=== PATIENT | female | born 1975 | race Caucasian/White ===

== ENCOUNTER 2020-12-13 20:18 | Emergency (ER) | payer OTHER, SELFPAY ==
[2020-12-13 20:20] VITALS: BP 149/85; PULSE 80; RESP 18; TEMP 36.9; O2SAT 97; BMI 53.1
[2020-12-13] MEDS: FAMOTIDINE 20 MG TABLET PO (20:24)
[2020-12-13] MEDS: predniSONE 20 MG TABLET 60 MG PO (20:24)
--- NOTE | 2020-12-13 20:35 | PC.NURSE ---
Patient got the [employer] Covid Vaccine 12/06/20 into her left deltoid. States there was a very large bump there that she has been massaging and thinks it maybe caused this. Currently i can still feel a hard lump in that area that she says has gone down in size.
--- NOTE | 2020-12-13 21:34 | ED_ITS ---
HPI - Allergic Reaction General Chief complaint: Allergic Reaction Stated complaint: Allergic Reaction Time Seen by Provider: 12/13/20 20:20 Source: patient and EMS Mode of arrival: EMS Limitations: no limitations History of Present Illness HPI narrative: 45-year-old female nonsmoker with history of allergic reactions and bronchospasm presents by EMS for evaluation of the development of a fine pruritic rash that developed on her arms, chest and back this afternoon. She denies any trouble breathing or swallowing. She denies any swelling of tongue, lip, throat or face. She denies dizziness, weakness, lightheadedness or GI complaints such as abdominal pain or diarrhea. She denies any exposure to new foods, lotions, pets but does state that she had a vaccination a few days ago and has had similar reactions in the past after flu shot. Patient took 75 mg of Benadryl at home by mouth MD complaint: allergic reaction Onset (ago): hour(s) Exposure: unknown Symptoms: rash Severity: mild Treatment prior to arrival: benadryl Previous Allergic Reaction History: other Related Data Previous Rx's Medication Instructions Recorded epinephrine [EpiPen 2-Devin] 0.3 mg IM Q5-15M PRN #2 each 12/13/20 prednisone See Rx Instructions .ROUTE 12/13/20 .COMPLEX #30 tab Allergies Allergy/AdvReac Type Severity Reaction Status Date / Time acetaminophen [From Tylenol] Allergy Severe Seizure Verified 12/13/20 20:35 influenza virus vaccine qs Allergy Intermediate Hives Verified 12/13/20 20:35 [id number] (36 mos, up) [From Fluarix Quad] Penicillins Allergy Intermediate Hives Verified 12/13/20 20:35 Review of Systems Constitutional Constitutional: Denies chills, Denies fatigue, Denies fever(s), Denies frequent falls, Denies lethargy and Denies weakness Eyes Eyes: Denies change in vision, Denies eye discharge, Denies irritation and Denies loss of vision ENT Ears, Nose, Mouth, and Throat: Denies change in voice, Denies dizziness, Denies neck pain, Denies sore throat and Denies throat swelling Cardiovascular Cardiovascular: Denies chest pain, Denies irregular heart rhythm, Denies lightheadedness, Denies palpitations, Denies dyspnea, Denies dyspnea on exertion and Denies orthopnea Respiratory Respiratory: Denies cough, Denies dyspnea, Denies dyspnea on exertion and Denies wheezing Gastrointestinal Gastrointestinal: Denies abdominal pain, Denies change in bowel habits, Denies diarrhea, Denies nausea and Denies vomiting Musculoskeletal Musculoskeletal: Denies neck pain and Denies numbness Integumentary/Breasts Skin/Breast: Reports pruritus, Denies erythema, Reports rash and Denies wounds Neurologic Neurologic: Denies behavioral changes, Denies confusion, Denies dizziness, D enies frequent falls, Denies loss of vision, Denies numbness and Denies weakness Psychiatric Psychiatric: Denies anxiety, Denies behavioral changes, Denies confusion, Denies depression, Denies homicidal ideation and Denies suicidal ideation Endocrine Endocrine: Denies fatigue, Denies flushing and Denies palpitations Hematologic/Lymphatic Hematologic/Lymphatic: Denies easy bruising Allergic/Immunologic Allergic/Immunologic: Denies urticaria, Denies throat swelling and Denies wheezing Patient History Smoking Status: Never smoker alcohol intake frequency: 0-2 drinks per day Substance Use Type: does not use Exam Narrative Exam Narrative: GENERAL: [45] year old patient appears stated age. Well- nourished, well-developed patient, in mild distress. HEAD: Atraumatic. Normocephalic. EYES: Pupils equal round and reactive. Extraocular motions intact. No scleral icterus. No injection or drainage. ENT: No swelling of face, lips, tongue or throat Nose without bleeding, purulent drainage. Throat without erythema, tonsillar hypertrophy or exudate. Airway patent. NECK: Trachea midline. Non tender CARDIOVASCULAR: Regular rate and rhythm without murmurs, gallops, or rubs. RESPIRATORY: Clear to auscultation. Breath sounds equal bilaterally. No wheezes, rales, or rhonchi. GASTROINTESTINAL: Abdomen soft, non-tender, nondistended. EXTREMITIES: No edema or joint tenderness. BACK: Nontender without deformity or crepitance. No flank tenderness. NEURO: AOx3. SKIN: Fine erythematous rash without obvious hives on arms, chest and back. Initial Vital Signs Initial Vital Signs: Vital Signs Temperature 98.5 F 12/13/20 20:20 Pulse Rate 80 12/13/20 20:20 Respiratory Rate 18 12/13/20 20:20 Blood Pressure 149/85 H 12/13/20 20:20 Pulse Oximetry 97 12/13/20 20:20 Course Course Course Narrative: Patient feeling better after above-stated therapies. Vitals stable, no airway involvement, no signs of anaphylaxis. Patient given return precautions and questions answered to her apparent satisfaction Orders Ordered: Discontinued Medications Famotidine (Famotidine 20 Mg Tablet) 20 mg PO NOW ONE Stop: 12/13/20 20:21 Last Admin: 12/13/20 20:24 Dose: 20 mg Documented by: CECIL Prednisone (Prednisone 20 Mg Tablet) 60 mg PO NOW ONE Stop: 12/13/20 20:20 Last Admin: 12/13/20 20:24 Dose: 60 mg Documented by: CECIL Vital Signs Vital signs: Vital Signs - 8 hr 12/13/20 20:20 12/13/20 21:46 Temperature 98.5 F Pulse Rate 80 74 Respiratory Rate 18 18 Blood Pressure 149/85 H 136/65 Pulse Oximetry 97 96 Discharge Plan Departure Patient Disposition: Home Clinical Impression: Allergic reaction Qualifiers: Encounter type: initial encounter Qualified Code(s): T78.40XA - Allergy, unspecified, initial encounter Instructions: DI for General Allergic Reactions Activity Restrictions/Additional Instructions: *You have been diagnosed with [allergic reaction, unknown trigger.] *What to do: *Take medications as directed: Please consider the routine use of [id number] antihistamines such as Benadryl and Pepcid. Additionally prescriptions have been sent to [facility] in [place] *Follow up with your primary care provider in 2-3 days, call for an appointment. Let them know you were seen in the Emergency Department and that we ask that you be seen in follow up *Return to ER if you should have any new, worsening or concerning symptoms, such as [trouble swallowing, breathing, swelling of tongue, lip or face or other bothersome symptoms] Prescriptions: New prednisone 10 mg tablet See Rx Instructions .ROUTE .COMPLEX Qty: 30 RF: 0 epinephrine [EpiPen 2-Devin] 0.3 mg/0.3 mL auto-injector 0.3 mg IM Q5-15M PRN (Reason: anaphylaxis) Qty: 2 RF: 0 Referrals: Nayeli Lopez DO [Primary Care Provider] -
[2020-12-13 21:46] VITALS: BP 136/65; PULSE 74; RESP 18; O2SAT 96
== END 2020-12-13 21:48 | disposition home or self-care (01) ==
PROVIDERS: Emergency Provider Emergency Medicine; PCP Family Medicine
DX: T78.40XA Allergy, unspecified, initial encounter (principal)
CPT/HCPCS: 99283; A9270

== ENCOUNTER → 2021-05-03 18:01 | Outpatient (CLI) | payer OTHER, SELFPAY ==
--- NOTE | 2021-05-03 18:04 | DI.RAD.S_ITS ---
PROCEDURE: XR CHEST 2V INDICATIONS: cough x3 weeks, not improving, asthma exacerbation, r/o PNA TECHNIQUE: 2 views of the chest were acquired. COMPARISON: [facility], , CHEST 2 VIEW, 02/27/2013, 18:05. FINDINGS: Surgical changes and devices: None. Lungs and pleura: Lungs are clear. No pleural effusions or pneumothorax. Mediastinum: Mediastinal contours are normal. Heart size is normal. Bones and chest wall: No suspicious bony abnormalities. Soft tissues appear unremarkable. IMPRESSION: Unremarkable chest x-ray Approved by: Adams Watson M.D. on 05/03/2021 at 17:22
== END ==
PROVIDERS: PCP Internal Medicine; Referring Provider Physician Assistant; Visit Provider Physician Assistant
DX: R05 Cough (principal); J45.901 Unspecified asthma with (acute) exacerbation; Z20.822 Contact with and (suspected) exposure to COVID-19
CPT/HCPCS: 71046; 87635

== ENCOUNTER 2021-11-18 08:53 | Emergency (ER) | payer OTHER, SELFPAY ==
--- NOTE | 2021-11-18 09:07 | DI.CT.S_ITS ---
PROCEDURE: CT STROKE INDICATIONS: right arm numbness HTN TECHNIQUE: Noncontrast 4.5 mm thick angled axial sections acquired from the foramen magnum to the vertex, with coronal reformats. For radiation dose reduction, the following was used: automated exposure control, adjustment of mA and/or kV according to patient size. COMPARISON: None. FINDINGS: Image quality: Excellent. CSF spaces: Basal cisterns are patent. No extra-axial fluid collections. Ventricles are normal in size and shape. Brain: No midline shift. No intracranial masses or hemorrhage. Gant-white matter interface is normal. Skull and face: Calvarium and visualized facial bones are intact, without suspicious lesions. Sinuses: Visualized sinuses and mastoids are clear. IMPRESSION: No acute intracranial abnormality. Findings were discussed with Dr. Corrigan 9:32 AM on 11/18/2021. This study fulfills neurological imaging criteria for inclusion or exclusion of acute stroke therapies based on available published neurological imaging guidelines. Dictated by: Rigo Ramirez M.D. on 11/18/2021 at 9:35 Approved by: Rigo Ramirez M.D. on 11/18/2021 at 9:36
--- NOTE | 2021-11-18 09:08 | DI.CT.S_ITS ---
PROCEDURE: CT ANGIO HEAD AND NECK INDICATIONS: right arm numbness TECHNIQUE: After the administration of intravenous contrast, 1 mm thick sections acquired from the aortic arch through the [place]. Post-contrast 4.5 mm thick sections then re-acquired from the foramen magnum to the vertex. 3-dimensional qqylvud-lopkhzvmh-omcmjnmamw (MIP) and/or volume rendering reformats were acquired of the central intracranial vasculature and neck separately. COMPARISON: None. FINDINGS: Image quality: Excellent. BRAIN: CSF spaces: Ventricles are normal in size and shape. Basal cisterns are patent. No extra-axial fluid collections. Brain: No midline shift. No intracranial bleeds or masses. Gant-white matter interface appears intact. Skull and face: Calvarium and facial bones appear intact, without suspicious lesions. Orbits appear normal. Sinuses: Sinuses and mastoids are clear. HEAD CT ANGIOGRAPHY: Anterior circulation: Intracranial internal carotid arteries are normal in size and flow. The flow within the paired anterior cerebral arteries is normal and symmetric. The flow within the middle cerebral arteries is normal and symmetric. The anterior communicating artery is seen. No aneurysms are seen. Posterior circulation: Visualized portions of the vertebral arteries demonstrate normal caliber, and join to form a normal appearing basilar artery. Flow within the posterior cerebral arteries is normal and symmetric. No aneurysms are seen. NECK CT ANGIOGRAPHY: Carotid system: The great vessels demonstrate a conventional anatomy as they arise from the aortic arch. The origins of the common carotid arteries appear patent. The common carotid arteries demonstrate normal caliber and courses. The bifurcation regions are both widely patent. The internal carotid arteries demonstrate normal calibers and courses. Posterior circulation: The origins of the vertebral arteries both appear widely patent. The more superior extracranial portions of both vertebral arteries also demonstrate normal courses and calibers. They join to form a normal appearing basilar artery. Soft tissues: Visualized neck soft tissues demonstrate no suspicious abnormalities. Bones: No suspicious bony lesions. Visualized cervical spine appears normally aligned. IMPRESSION: No hemodynamically significant stenosis or occlusion of the major intracranial or extracranial arterial circulation. Findings were discussed with Dr. Corrigan at 043 on 11/18/2021. Any quantitative measurements of stenosis were performed using NASCET criteria. Dictated by: Rigo Ramirez M.D. on 11/18/2021 at 9:42 Approved by: Rigo Ramirez M.D. on 11/18/2021 at 9:44
--- NOTE | 2021-11-18 09:15 | ED_ITS ---
HPI - Neuro Symptoms/Deficit General Chief Complaint: Neuro Symptoms/Deficit Stated Complaint: Frontal Migraine and Rt. arm pain Time Seen by Provider: 11/18/21 09:03 History of Present Illness HPI Narrative: Patient is a 46-year-old female with history of hypertension and migraines pres enting today with migraine-like headache. She actually said 2 days ago she had the worst migraine headache she has ever had. She said she took Advil and Flexeril went to sleep woke up and it was gone. Yesterday she had a normal day. Today she woke up at 6:15 a.m. with headache and severe right arm pain. She feels like it is numb and tingling. It does hurt to move she is actually needing something to help prop it up. But she is able to hold it. She has a headache behind her head starting in her neck and going to the front. It certainly is not as bad as it was 2 days ago. However today she checked her blood pressure is quite elevated. She does take losartan for blood pressure. She denies any visual changes nausea or vomiting. She has no chest pain Related Data Previous Rx's Medication Instructions Recorded epinephrine 0.3 mg/0.3 mL 0.3 mg (0.3 mL) IM Q5-15M PRN #2 12/13/20 injection, auto-injector (EpiPen each 2-Devin) prednisone 10 mg tablet See Rx Instructions .ROUTE 12/13/20 .COMPLEX #30 tab benzonatate 100 mg capsule 100 mg PO BID-TID PRN #20 cap 05/03/21 Allergies Allergy/AdvReac Type Severity Reaction Status Date / Time acetaminophen [From Tylenol] Allergy Severe Seizure Verified 11/18/21 09:19 influenza virus vaccine qs Allergy Intermediate Hives Verified 11/18/21 09:19 [id number] (36 mos, up) [From Fluarix Quad] Penicillins Allergy Intermediate Hives Verified 11/18/21 09:19 Review of Systems Review of Systems Narrative: GENERAL: Denies chills, fatigue, malaise, fever, sweats, travel HEENT: Denies sinus pain, ear pain, sore throat, difficulty swallowing, neck pain RESPIRATORY: Denies dyspnea, cough, wheezing, hemoptysis, sputum. CARDIOVASCULAR: Denies chest pain, palpitations, orthopnea, edema GASTROINTESTINAL: Denies nausea, vomiting, abdominal pain, diarrhea, constipation, melena. : Denies dysuria, frequency, incontinence, hematuria, urinary retention, flank pain. MUSCULOSKELETAL: Denies weakness, joint pain, or bony pain SKIN: No rash, no erythema, no pruritus NEUROLOGIC: See HPI PSYCHIATRIC: No concerning psychosocial issues. 12 point review of systems is negative except for those stated above and HPI Patient History Medical History Hypertension Migraine Social History Smoking Status: Never smoker Smoking Status: Never smoker alcohol intake frequency: 0-2 drinks per day Substance Use Type: does not use Exam Initial Vital Signs Initial Vital Signs: Vital Signs Temperature 98.4 F 11/18/21 09:19 Pulse Rate 84 11/18/21 09:19 Respiratory Rate 20 11/18/21 09:19 Blood Pressure 189/80 H 11/18/21 09:19 Pulse Oximetry 98 11/18/21 09:19 GENERAL: Alert well-appearing 36-year-old female BMI 57 in no acute distress. HEENT: Head atraumatic,EOMI, pupils reactive, face symmetric, moist mucous membranes CARDIOVASCULAR: Regular rate and rhythm without murmurs, rubs or gallops. RESPIRATORY: Breath sounds equal bilaterally, no wheezes rales or rhonchi. ABDOMEN: Soft, nontender. Normoactive bowel sounds all 4 quadrants. No guarding or rebound. EXTREMITIES: Normal range of motion, no clubbing or edema. Neurovascularly intact NEUROLOGICAL: Alert and oriented x4.Normal gait and speech. Cranial nerves II through XII grossly intact. Good mtjsyx-pp-woos, good cjmd-ih-wxcu, strength equal bilaterally, no dysarthria or aphasia, sensation in tact to soft touch bilaterally, no visual changes, no facial droop SKIN: Warm, dry, no laceration, no petechiae, no rashes or lesions. Scores NIH Stroke Scale Level of Conciousness: Alert, keenly responsive Ask month/age: Answers both questions correctly. Open/close eyes, close hand: Performs both tasks correctly Best gaze horizontal: Normal Visual nguyen: No visual loss Facial palsy: Normal symetrical movement Left arm drift: No drift for full 10 sec Right arm drift: No drift for full 10 sec Left leg drift: No drift for full 5 sec Right leg drift: No drift for full 5 sec Limb ataxia: Absent Sensory on face/arms/legs: Mild to moderate sensory loss, can tell touch (right arm) Best language: No aphasia, normal Dysarthria: Normal Extinction or inattention: No abnormality Total NIH Stroke scale score: 1 Course Orders Ordered: ED Orders 11/18/21 10:47 Urinalysis and Microscopic Stat Discontinued Medications Sodium Chloride (Normal Saline 0.9%) 1,000 mls @ 150 mls/hr IV CONT TIERRA Last Admin: 11/18/21 10:00 Dose: 150 mls/hr Documented by: PORFIRIO Vital Signs Vital signs: Vital Signs - 8 hr 11/18/21 11:00 11/18/21 11:30 11/18/21 11:35 Pulse Rate 81 79 81 Respiratory Rate 37 H 14 16 Blood Pressure 199/89 H 158/67 H Pulse Oximetry 98 11/18/21 11:45 Pulse Rate 81 Respiratory Rate 18 Blood Pressure 158/67 H Pulse Oximetry 99 MDM - Neuro Symptoms/Deficit Lab Data Result diagrams: 11/18/21 09:55 11/18/21 09:55 Labs: Lab Results 11/18/21 11/18/21 11/18/21 Range/Units 09:45 09:55 09:55 WBC 9.0 (4.5-11.0) X10^3/uL RBC 4.53 (4.0-5.2) X10^6/uL Hgb 12.8 (12.0-16.0) g/dL Hct 38.0 (36-46) % MCV 83.9 (80-100) fL MCH 28.2 (26-34) PG MCHC 33.6 (30-36) % RDW 14.4 (11.6-14.8) % Plt Count 255 (150-400) X10^3/uL Neut % (Auto) 61.5 (50-75) % Lymph % (Auto) 30.6 (25-40) % [place] % (Auto) 5.3 (3-14) % Eos % (Auto) 2.0 (2-4) % Baso % (Auto) 0.6 (0-2) % Neut # (Auto) 5500 (8524-0298) /uL Lymph # (Auto) 2800 (9485-7779) /uL [place] # (Auto) 500 (0-900) /uL Eos # (Auto) 200 (0-450) /uL Baso # (Auto) 100 (0-100) /uL Sodium 136 L (137-145) mmol/L Potassium 4.2 (3.4-5.1) mmol/L Chloride 102 (98-107) mmol/L Carbon Dioxide 28 (22-32) mmol/L BUN 10 (7-17) mg/dL Creatinine 0.73 (0.52-1.04) mg/dL Estimated GFR > 60.0 (>60) mL/min BUN/Creatinine Ratio 13.7 (6-22) Glucose 97 (70-100) mg/dL Calcium 8.6 (8.4-10.2) mg/dL Total Bilirubin 0.3 (0.2-1.3) mg/dL AST 21 (14-36) IU/L ALT 15 (<35) IU/L Alkaline Phosphatase 77 (38-126) U/L Total Creatine Kinase 96 (30-135) U/L CK-MB (CK-2) TNP CK-MB (CK-2) Rel Index TNP Troponin I < 0.012 (0.01-0.034) ng/mL Total Protein 7.4 (6.3-8.2) g/dL Albumin 4.1 (3.5-5.0) g/dL Globulin 3.3 (1.7-4.1) g/dL Albumin/Globulin Ratio 1.2 (1.0-2.8) Urine Color Urine Appearance Urine pH (4.5-8.0) Ur Specific [place] (1.000-1.035) Urine Protein (Negative) Urine Glucose (UA) (Negative) g/dL Urine Ketones (NEGATIVE) Urine Occult Blood (Negative) Urine Nitrate (Negative) Urine Bilirubin (NEGATIVE) Urine Urobilinogen (0.2) E.U./dL Ur Leukocyte Esterase (NEGATIVE) Urine RBC (0-5/HPF) Urine WBC (0-5/HPF) Ur Squamous Epith Cells (0-5/HPF) Urine Bacteria (None) Ur Culture Indicated? U Opiates 300ng/mL cut Negative (Negative) Ur Oxycodone Screen Negative (Negative) Urine Methadone Screen Negative (Negative) Ur Barbiturates Screen Negative (Negative) U Tricyclic Antidepress Negative (Negative) Ur Phencyclidine Scrn Negative (Negative) Ur Amphetamines Screen Negative (Negative) U Methamphetamines Scrn Negative (Negative) Ur MDMA Scrn (Ecstasy) Negative (Negative) U Benzodiazepines Scrn Negative (Negative) Urine Cocaine Screen Negative (Negative) U Marijuana (THC) Screen Negative (Negative) 11/18/21 Range/Units 10:47 WBC (4.5-11.0) X10^3/uL RBC (4.0-5.2) X10^6/uL Hgb (12.0-16.0) g/dL Hct (36-46) % MCV (80-100) fL MCH (26-34) PG MCHC (30-36) % RDW (11.6-14.8) % Plt Count (150-400) X10^3/uL Neut % (Auto) (50-75) % Lymph % (Auto) (25-40) % [place] % (Auto) (3-14) % Eos % (Auto) (2-4) % Baso % (Auto) (0-2) % Neut # (Auto) (0773-2270) /uL Lymph # (Auto) (8015-4470) /uL [place] # (Auto) (0-900) /uL Eos # (Auto) (0-450) /uL Baso # (Auto) (0-100) /uL Sodium (137-145) mmol/L Potassium (3.4-5.1) mmol/L Chloride (98-107) mmol/L Carbon Dioxide (22-32) mmol/L BUN (7-17) mg/dL Creatinine (0.52-1.04) mg/dL Estimated GFR (>60) mL/min BUN/Creatinine Ratio (6-22) Glucose (70-100) mg/dL Calcium (8.4-10.2) mg/dL Total Bilirubin (0.2-1.3) mg/dL AST (14-36) IU/L ALT (<35) IU/L Alkaline Phosphatase (38-126) U/L Total Creatine Kinase (30-135) U/L CK-MB (CK-2) CK-MB (CK-2) Rel Index Troponin I (0.01-0.034) ng/mL Total Protein (6.3-8.2) g/dL Albumin (3.5-5.0) g/dL Globulin (1.7-4.1) g/dL Albumin/Globulin Ratio (1.0-2.8) Urine Color Yellow Urine Appearance Clear Urine pH 6.5 (4.5-8.0) Ur Specific [place] <=1.005 (1.000-1.035) Urine Protein Negative (Negative) Urine Glucose (UA) Negative (Negative) g/dL Urine Ketones Negative (NEGATIVE) Urine Occult Blood 1+ H (Negative) Urine Nitrate Negative (Negative) Urine Bilirubin Negative (NEGATIVE) Urine Urobilinogen 0.2 (0.2) E.U./dL Ur Leukocyte Esterase Negative (NEGATIVE) Urine RBC None seen (0-5/HPF) Urine WBC None seen (0-5/HPF) Ur Squamous Epith Cells 0-1 /hpf (0-5/HPF) Urine Bacteria Occasional (0-1) (None) Ur Culture Indicated? Cult not indicated U Opiates 300ng/mL cut (Negative) Ur Oxycodone Screen (Negative) Urine Methadone Screen (Negative) Ur Barbiturates Screen (Negative) U Tricyclic Antidepress (Negative) Ur Phencyclidine Scrn (Negative) Ur Amphetamines Screen (Negative) U Methamphetamines Scrn (Negative) Ur MDMA Scrn (Ecstasy) (Negative) U Benzodiazepines Scrn (Negative) Urine Cocaine Screen (Negative) U Marijuana (THC) Screen (Negative) Point of Care Testing Test Results Negative Glucose POC 82 Urine Dip Bedside Urine Glucose Negative Bedside Urine Bilirubin - Negative Bedside Urine Ketone - Negative Urine Specific [place] 1.010 Bedside Urine Occult Blood +/- Bedside Urine pH 6.0 Bedside Urine Protein - Negative Bedside Urine Urobilinogen - Negative Bedside Urine Nitrite - Negative Bedside Urine Leukocytes - Negative Esterase Imaging Data CT scan - head: Radiologist's Impression: PROCEDURE:? CT STROKE ? INDICATIONS:? right arm numbness HTN ? TECHNIQUE:? Noncontrast 4.5 mm thick angled axial sections acquired from the foramen magnum to the vertex, with coronal reformats.? For radiation dose reduction, the following was used:? automated exposure control, adjustment of mA and/or kV according to patient size.? ? COMPARISON:? None. ? FINDINGS:? Image quality:? Excellent.? ? CSF spaces:? Basal cisterns are patent.? No extra-axial fluid collections.? Ventricles are normal in size and shape.? ? Brain:? No midline shift.? No intracranial masses or hemorrhage.? Gant-white matter interface is normal.? ? Skull and face:? Calvarium and visualized facial bones are intact, without suspicious lesions.? ? Sinuses:? Visualized sinuses and mastoids are clear.? ? IMPRESSION:? No acute intracranial abnormality.? Findings were discussed with Dr. Corrigan 9:32 AM on 11/18/2021. ? This study fulfills neurological imaging criteria for inclusion or exclusion of acute stroke therapies based on available published neurological imaging guidelines.? ? ? Dictated by: Rigo Ramirez M.D. on 11/18/2021 at 9:35 ? ? Approved by: Rigo Ramirez M.D. on 11/18/2021 at 9:36 ? CT - cervical spine: Radiologist's Impression: PROCEDURE:? CT ANGIO HEAD AND NECK ? INDICATIONS:? right arm numbness ? TECHNIQUE:? After the administration of intravenous contrast, 1 mm thick sections acquired from the aortic arch through the [place] of Lam.? Post-contrast 4.5 mm thick sections then re-acquired from the foramen magnum to the vertex.? 3-dimensional ddqwhmt-yidgglprn-bwxeubizjk (MIP) and/or volume rendering reformats were acquired of the central intracranial vasculature and neck separately. ? COMPARISON:? None. ? FINDINGS:? Image quality:? Excellent.? ? BRAIN:? CSF spaces:? Ventricles are normal in size and shape.? Basal cisterns are pat ent.? No extra-axial fluid collections.? ? Brain:? No midline shift.? No intracranial bleeds or masses.? Gant-white matter interface appears intact.? ? Skull and face:? Calvarium and facial bones appear intact, without suspicious lesions.? Orbits appear normal.? ? Sinuses:? Sinuses and mastoids are clear.? ? HEAD CT ANGIOGRAPHY:? Anterior circulation:? Intracranial internal carotid arteries are normal in size and flow.? The flow within the paired anterior cerebral arteries is normal and symmetric.? The flow within the middle cerebral arteries is normal and symmetric.? The anterior communicating artery is seen.? No aneurysms are seen.? ? Posterior circulation:? Visualized portions of the vertebral arteries demonstrate normal caliber, and join to form a normal appearing basilar artery.? Flow within the posterior cerebral arteries is normal and symmetric.? No aneurysms are seen.? ? NECK CT ANGIOGRAPHY:? Carotid system:? The great vessels demonstrate a conventional anatomy as they arise from the aortic arch.? The origins of the common carotid arteries appear patent.? The common carotid arteries demonstrate normal caliber and courses.? The bifurcation regions are both widely patent.? The internal carotid arteries demonstrate normal calibers and courses.? ? Posterior circulation:? The origins of the vertebral arteries both appear widely patent.? The more superior extracranial portions of both vertebral arteries also demonstrate normal courses and calibers.? They join to form a normal appearing basilar artery.? ? Soft tissues:? Visualized neck soft tissues demonstrate no suspicious abnormalities.? ? Bones:? No suspicious bony lesions.? Visualized cervical spine appears normally aligned.? IMPRESSION:? No hemodynamically significant stenosis or occlusion of the major intracranial or extracranial arterial circulation. Findings were discussed with Dr. Corrigan at 043 on 11/18/2021. ? Any quantitative measurements of stenosis were performed using NASCET criteria.? ? ? Dictated by: Rigo Ramirez M.D. on 11/18/2021 at 9:42 ? ? ECG Data Interpretation: Normal sinus rhythm rate 85 MO interval 138 QRS 88 QTC 471 T changes T-wave inversion MDM Narrative Medical decision making narrative: Patient has a history of migraines presenting with migraine-like headache the 2nd 1 this week with right arm pain. She says it actually feels like it is asleep and hurts. However soon as she got her her symptoms started improving her blood pressure has improved. She had at 2- head CTs blood work is overall reassuring. She says she overall is feeling much better. Possible complicated migraine versus TIA. I discussed these options with her. She is given the option of staying in the hospital for full stroke workup of which at this time she opts to go home. Discussed with her taking aspirin 81 mg daily along lifestyle changes to help prevent stroke. Discharge Plan Departure Patient Disposition: Home Clinical Impression: Complicated migraine Instructions: DI for Migraine, DI for Transient Ischemic Attack Activity Restrictions/Additional Instructions: *You have been diagnosed with migraine headache *What to do: At this time symptoms are most consistent with a complicated migraine however have not completely ruled out stroke. Please continue lifestyle changes with eating healthy exercise. You may need further workup please follow-up with your primary care provider for possible MRI *Continue to take medications as directed Aspirin 81 mg daily *Follow up with your primary care provider in 2-3 days or call [phone] *Return to ER if you should have weakness numbness tingling worsening headache visual changes speech difficulty chest pain or any new, worsening or concerning symptoms Prescriptions: No Action benzonatate 100 mg capsule 100 mg PO BID-TID PRN (Reason: cough) Qty: 20 0RF prednisone 10 mg tablet See Rx Instructions .ROUTE .COMPLEX Qty: 30 0RF Rx Instructions: Day 1,2,3: 40mg PO Daily Day 4,5,6: 30mg PO Daily Day 7,8,9: 20mg PO Daily Day 10,11,12: 10mg PO Daily #30 epinephrine [EpiPen 2-Devin] 0.3 mg/0.3 mL auto-injector 0.3 mg IM Q5-15M PRN (Reason: anaphylaxis) Qty: 2 0RF Rx Instructions: do not exceed 3 doses per episode Referrals: Geo Haji MD [Non-Staff] -
[2021-11-18 09:19] VITALS: BP 189/80; PULSE 84; RESP 20; TEMP 36.9; O2SAT 98; BMI 57.6
[2021-11-18] MEDS: SODIUM CHLORIDE 0.9% 1,000 ML 150 ML IV (10:00)
[2021-11-18 10:04] LABS: Add Manual Diff / Slide Review NO; Basophils Absolute Auto 100 /uL (0-100); Basophils Percent Auto 0.6 % (0-2); Eosinophils Absolute Auto 200 /uL (0-450); Hemoglobin 12.8 g/dL (12.0-16.0); Lymphocytes Absolute Auto 2800 /uL (1100-4500); Lymphocytes Percent Auto 30.6 % (25-40); Mean Corpuscular HGB Conc 33.6 % (30-36); Mean Corpuscular Hemoglobin 28.2 PG (26-34); Mean Corpuscular Volume 83.9 fL (80-100); Monocytes Absolute Auto 500 /uL (0-900); Monocytes Percent Auto 5.3 % (3-14); Neutrophils Absolute Auto 5500 /uL (1500-7000); Neutrophils Percent Auto 61.5 % (50-75); Platelet Count 255 X10^3/uL (150-400); Red Blood Cell Count 4.53 X10^6/uL (4.0-5.2); Red Cell Distribution Width 14.4 % (11.6-14.8)
[2021-11-18 10:12] LABS: UR Morphine/Opiate cutoff 300 Negative (Negative); Ur Creatinine Normal (Normal); Ur Specific Gravity Normal (Normal); Urine Amphetamines Negative (Negative); Urine Barbiturates Negative (Negative); Urine Benzodiazepines Negative (Negative); Urine Cocaine Negative (Negative); Urine MDMA Negative (Negative); Urine Methadone Negative (Negative); Urine Methamphetamines Negative (Negative); Urine Oxycodone Negative (Negative); Urine Phencyclidine Negative (Negative); Urine Tetrahydrocannabinol Negative (Negative); Urine Tricyclic Antidepressant Negative (Negative); Urine pH Normal (Normal)
[2021-11-18 10:21] LABS: Alanine Aminotransferase 15 IU/L (<35); Albumin 4.1 g/dL (3.5-5.0); Albumin Globulin Ratio 1.2 (1.0-2.8); Alkaline Phosphatase 77 U/L (38-126); Aspartate Aminotransferase 21 IU/L (14-36); BUN Creatinine Ratio 13.7 (6-22); Bilirubin Total 0.3 mg/dL (0.2-1.3); Blood Urea Nitrogen 10 mg/dL (7-17); Calcium 8.6 mg/dL (8.4-10.2); Carbon Dioxide 28 mmol/L (22-32); Chloride 102 mmol/L (98-107); Creatine Kinase 96 U/L (30-135); Estimated Glomerular Filt Rate > 60.0 mL/min (>60); Globulin 3.3 g/dL (1.7-4.1); Glucose 97 mg/dL (70-100); HEMOLYSIS < 15 (0-50); Potassium 4.2 mmol/L (3.4-5.1); Sodium 136 mmol/L (137-145); Total Protein 7.4 g/dL (6.3-8.2)
[2021-11-18 10:30] VITALS: BP 158/67; PULSE 85; RESP 20; TEMP 36.5; O2SAT 97
[2021-11-18 10:32] LABS: Troponin I < 0.012 ng/mL (0.01-0.034)
[2021-11-18 10:56] LABS: Appearance Urine UA CLEAR; Bilirubin Urine UA NEGATIVE (NEGATIVE); Color Urine UA YELLOW; Glucose Urine UA NEGATIVE (Negative); Ketones Urine UA NEGATIVE (NEGATIVE); Leukocyte Esterase Urine UA NEGATIVE (NEGATIVE); Nitrite Urine UA NEGATIVE (Negative); Occult Blood Urine UA 1+ (Negative); Protein Urine UA NEGATIVE (Negative); Specific Gravity Urine UA <=1.005 (1.000-1.035); Urobilinogen Urine UA 0.2 E.U./dL (0.2)
[2021-11-18 11:00] VITALS: PULSE 81; RESP 37; O2SAT 98
[2021-11-18 11:02] LABS: pH Urine UA 6.5 (4.5-8.0)
[2021-11-18 11:05] LABS: RBC Urine None Seen (0-5/HPF); Squamous Epithelial Cell Urine 0-1 /HPF (0-5/HPF); WBC Urine None Seen (0-5/HPF)
[2021-11-18 11:06] LABS: Bacteria Urine Occasional (0-1); Culture Indicated Urine Cult Not Indicated
[2021-11-18 11:30] VITALS: BP 199/89; PULSE 79; RESP 14
[2021-11-18 11:35] VITALS: BP 158/67; PULSE 81; RESP 16
[2021-11-18 11:45] VITALS: BP 158/67; PULSE 81; RESP 18; O2SAT 99
== END 2021-11-18 11:47 | disposition home or self-care (01) ==
PROVIDERS: Emergency Provider Emergency Medicine; PCP Nurse Practitioner Family
DX: G43.109 Migraine with aura, not intractable, without status migrainosus (principal)
CPT/HCPCS: 36415; 70450; 70496; 70498; 80053; 80305; 81001; 81003; 81025; 82550; 82962; 84484; 85025; 93005; 93010; 96360; 99284; Q9967

== ENCOUNTER 2021-12-03 09:31 | Emergency (ER) | payer OTHER, SELFPAY ==
[2021-12-03] VITALS (17 sets, daily range): BP systolic 117–143; BP diastolic 59–83; PULSE 79–104; RESP 12–28; TEMP 36.3; O2SAT 91–100; BMI 52.4
--- NOTE | 2021-12-03 10:05 | PC.NURSE ---
Long standing h/o depression with suicide attempts dating back to before 2004. This morning around 0830 pt took handful of klonazepam, hydroxizine, trazadone, and advil PM. Also with 1 superficial scrape on anterior L wrist. Was found by mother after she wasnt answering her phone. Pt awake, drowsy, yet oriented with stable vitals at this time. no nausea or vomiting. Mother, Amanda in room and at bedside. States that pt also took mixed amount pills on as well in which they did not come to the hospital. mother states she called the crisis hotline for help and states they were rude and no one would help me
[2021-12-03 10:38] LABS: UR Morphine/Opiate cutoff 300 Negative (Negative); Ur Creatinine Normal (Normal); Ur Specific Gravity Normal (Normal); Urine Amphetamines Negative (Negative); Urine Barbiturates Negative (Negative); Urine Benzodiazepines Negative (Negative); Urine Cocaine Negative (Negative); Urine MDMA Negative (Negative); Urine Methadone Negative (Negative); Urine Methamphetamines Negative (Negative); Urine Oxycodone Negative (Negative); Urine Phencyclidine Negative (Negative); Urine Tetrahydrocannabinol Negative (Negative); Urine Tricyclic Antidepressant Negative (Negative); Urine pH Normal (Normal)
[2021-12-03 10:52] LABS: Acetaminophen < 10 ug/mL (10-30); Add Manual Diff / Slide Review NO; Alanine Aminotransferase 13 IU/L (<35); Albumin 4.1 g/dL (3.5-5.0); Albumin Globulin Ratio 1.3 (1.0-2.8); Alkaline Phosphatase 85 U/L (38-126); Aspartate Aminotransferase 19 IU/L (14-36); BUN Creatinine Ratio 12.7 (6-22); Basophils Absolute Auto 0 /uL (0-100); Basophils Percent Auto 0.3 % (0-2); Bilirubin Total 0.4 mg/dL (0.2-1.3); Blood Urea Nitrogen 10 mg/dL (7-17); Carbon Dioxide 25 mmol/L (22-32); Chloride 103 mmol/L (98-107); Eosinophils Absolute Auto 200 /uL (0-450); Eosinophils Percent Auto 1.9 % (2-4); Estimated Glomerular Filt Rate > 60.0 mL/min (>60); Ethanol (ETOH) < 10 mg/dL; Globulin 3.2 g/dL (1.7-4.1); Glucose 99 mg/dL (70-100); HEMOLYSIS < 15 (0-50); Hematocrit 37.2 % (36-46); Hemoglobin 12.7 g/dL (12.0-16.0); Lymphocytes Absolute Auto 2500 /uL (1100-4500); Lymphocytes Percent Auto 22.9 % (25-40); Mean Corpuscular HGB Conc 34.2 % (30-36); Mean Corpuscular Hemoglobin 28.4 PG (26-34); Mean Corpuscular Volume 82.9 fL (80-100); Monocytes Absolute Auto 500 /uL (0-900); Monocytes Percent Auto 4.7 % (3-14); Neutrophils Absolute Auto 7700 /uL (1500-7000); Neutrophils Percent Auto 70.2 % (50-75); Platelet Count 242 X10^3/uL (150-400); Potassium 4.2 mmol/L (3.4-5.1); Red Blood Cell Count 4.49 X10^6/uL (4.0-5.2); Red Cell Distribution Width 13.7 % (11.6-14.8); Salicylate < 1.0 mg/dL (<20); Sodium 138 mmol/L (137-145); Total Protein 7.3 g/dL (6.3-8.2)
[2021-12-03 10:57] LABS: Appearance Urine UA CLEAR; Bilirubin Urine UA NEGATIVE (NEGATIVE); Color Urine UA YELLOW; Glucose Urine UA NEGATIVE (Negative); Ketones Urine UA NEGATIVE (NEGATIVE); Leukocyte Esterase Urine UA NEGATIVE (NEGATIVE); Nitrite Urine UA NEGATIVE (Negative); Occult Blood Urine UA 1+ (Negative); Protein Urine UA NEGATIVE (Negative); Specific Gravity Urine UA <=1.005 (1.000-1.035); Urobilinogen Urine UA 0.2 E.U./dL (0.2)
--- NOTE | 2021-12-03 11:07 | PC.NURSE ---
patient is now laying in bed and her mother is at bedside. Patient used BSC and requires 1 person assist as she is unsteady on her feet.
[2021-12-03 11:10] LABS: Amorphous Sediment Urine 1+; Bacteria Urine Occasional (0-1); Culture Indicated Urine Cult Not Indicated; RBC Urine 0-1/HPF (0-5/HPF); Squamous Epithelial Cell Urine 5-10 /HPF (0-5/HPF); WBC Urine None Seen (0-5/HPF)
[2021-12-03 11:15] LABS: Pregnancy Test Urine Negative (Negative)
[2021-12-03 11:30] LABS: Free T4, Direct Thyroxine 0.78 ng/dL (0.78-2.19)
[2021-12-03 11:44] LABS: Thyroid Stimulating Hormone 4.37 uIU/mL (0.47-4.68)
[2021-12-03 12:33] LABS: COVID19 -Nasal RAPID Negative (Negative)
--- NOTE | 2021-12-03 14:21 | ED.PSYCH ---
HPI - Psych General Chief Complaint: Psychiatric Symptoms Stated Complaint: 2nd suicide attempt this week Time Seen by Provider: 12/03/21 10:11 Source: patient and family Mode of arrival: Ambulatory Limitations: no limitations History of Present Illness HPI Narrative: The patient presents to the ER after an overdose attempt this morning. She took an unknown number of multiple medications, including Clonazepam, Hydroxyzine, Trazodone, and Advil p.m.. She was clearly trying to harm herself when she overdose this morning. Apparently she had the same several days ago, and recovered, but did not discuss the overdose. She arrives now with her mother after this overdose attempt. She is sleepy upon arrival. She woke, she is pleasant during our conversation. When I asked her about suicidal ideation, she keeps answering in directly tell me he is sleepy. She will not answer that question. She has no headache, visual changes, or confusion. She has no chest pain, cough or dyspnea. She has no GI complaints or complaints. She has intermittent spasm in her legs, no weakness. She denies recent illness. She has not done anything to physically injured herself. She denies alcohol or drug use. She has a past medical history that includes migraine headaches, and hypertension. Related Data Home Medications Medication Instructions Recorded Confirmed trazodone 50 mg tablet 50 mg PO PRN PRN 12/03/21 12/03/21 Previous Rx's Medication Instructions Recorded epinephrine 0.3 mg/0.3 mL 0.3 mg (0.3 mL) IM Q5-15M PRN #2 12/13/20 injection, auto-injector (EpiPen each 2-Devin) prednisone 10 mg tablet See Rx Instructions .ROUTE 12/13/20 .COMPLEX #30 tab benzonatate 100 mg capsule 100 mg PO BID-TID PRN #20 cap 05/03/21 Allergies Allergy/AdvReac Type Severity Reaction Status Date / Time acetaminophen [From Tylenol] Allergy Severe Seizure Verified 11/18/21 09:19 influenza virus vaccine qs Allergy Intermediate Hives Verified 11/18/21 09:19 [id number] (36 mos, up) [From Fluarix Quad] Penicillins Allergy Intermediate Hives Verified 11/18/21 09:19 Review of Systems Review of Systems ROS Unobtainable: All systems reviewed & are unremarkable except as noted in HPI and below Constitutional Constitutional: Reports as per HPI, Denies anorexia, Denies body ache(s), Denies chills, Denies fatigue, Denies fever(s) and Denies headache(s) Eyes Eyes: Denies blind spots, Denies blurry vision and Denies change in vision ENT Ears, Nose, Mouth, and Throat: Denies vertigo, Denies dizziness, Denies headache(s), Denies neck pain, Denies sinus pain and Denies sore throat Cardiovascular Cardiovascular: Denies chest pain, Denies syncope, Denies rapid heart rate, Denies pedal edema, Denies edema and Denies dyspnea Respiratory Respiratory: Denies chest congestion, Denies cough and Denies dyspnea Gastrointestinal Gastrointestinal: Denies abdominal pain, Denies nausea, Denies vomiting and Denies other (No history of GI bleed.) Genitourinary Genitourinary: Denies dysuria and Denies flank pain Musculoskeletal Musculoskeletal: Denies arthralgias, Denies back pain and Denies neck pain Comments: Intermittent lower extremity spasm. Integumentary/Breasts Skin/Breast: Denies lesions and Denies rash Neurologic Neurologic: Denies confusion, Denies vertigo, Denies dizziness, Denies syncope, Denies headache(s) and Denies memory loss Psychiatric Psychiatric: Denies anxiety, Denies confusion, Denies depression and Denies memory loss Comments: Unclear regarding suicidal ideation. Endocrine Endocrine: Denies fatigue Hematologic/Lymphatic On Anticoagulants: No Patient History Medical History Hypertension Migraine Social History Smoking Status: Never smoker Smoking Status: Never smoker alcohol intake frequency: 0-2 drinks per day Substance Use Type: does not use Exam Initial Vital Signs Initial Vital Signs: Vital Signs Temperature 97.3 F L 12/03/21 10:00 Pulse Rate 93 H 12/03/21 10:00 Respiratory Rate 12 12/03/21 10:00 Blood Pressure 143/83 H 12/03/21 10:00 Pulse Oximetry 96 12/03/21 10:00 Const General: cooperative, healthy appearing, comfortable, well developed and well groomed HENSC Head: normal to inspection, normocephalic and atraumatic Face and sinus: normal facial exam Mouth: oral mucosae normal Throat: posterior oropharynx normal Eyes General: appearance normal, both eyes and all related structures Conjunctivae: conjunctivae normal Sclera: sclerae normal Pupils: PERRL EOM: EOM intact bilaterally and No nystagmus Neck Neck: normal visual inspection Chest Chest: normal inspection of the chest Resp Effort & Inspection: normal respiratory effort Auscultation: clear to auscultation bilaterally Cardio Rate: regular rate Rhythm: regular rhythm Heart Sounds: S1 normal, S2 normal and no murmurs GI Inspection: normal to inspection and obesity Palpation: soft and No tender Auscultation: normal bowel sounds Back/Spine/Pelvis Back: normal to inspection Skin General: no rashes or lesions noted Neuro General: patient alert, patient awake, patient oriented x3 and no focal motor deficits Cranial Nerves: No nystagmus Other: She has experienced spasms, she has no leg spasm at this time. Extrem General: normal to inspection, no pedal edema and no calf tenderness Psych Appearance: disheveled Speech and Movement: speech and movement normal Mood: paranoid Affect: labile affect Attitude: cooperative Thought Content: no hallucinations, no homicidality, no obsessions and suicidality Judgment: poor Course Course Course Narrative: The patient was medically cleared. The patient was initially evaluated by MAINTENANCE SERVICE SUPERVISOR here at the hospital. She initially concurred with bulge remission, she decided she wanted go home. She was further evaluate by Milly GONSALEZ. Despite since today, she is clinically stable not suicidal. Borderline personality is strongly suspected. She had her are comfortable with her going home. Orders Ordered: ED Orders 12/03/21 10:05 Acetaminophen Stat CK [Creatine Kinase] Stat Complete Blood Count AUTO DIFF Stat Comprehensive Metabolic Panel Stat Ethanol (ETOH) Stat Free T4, Direct Thyroxine Stat Magnesium Stat Salicylate Stat Thyroid Stimulating Hormone Stat Urine Drug Screen, Rapid Stat 12/03/21 10:15 COVID19 -Nasal swab/Pre-Proc Stat 12/03/21 10:53 Test Urine Stat Urinalysis and Microscopic Stat 12/03/21 17:14 ETOH [Ethanol (ETOH)] Stat Vital Signs Vital signs: Vital Signs - 8 hr 12/03/21 11:19 12/03/21 11:30 12/03/21 12:00 Pulse Rate 85 84 91 H Respiratory Rate 22 21 24 Blood Pressure 117/59 L Pulse Oximetry 94 93 96 12/03/21 12:23 12/03/21 12:30 12/03/21 13:00 Pulse Rate 88 102 H 83 Respiratory Rate 22 17 21 Blood Pressure 117/74 117/70 Pulse Oximetry 95 97 96 12/03/21 13:30 12/03/21 14:00 12/03/21 14:30 Pulse Rate 85 87 104 H Respiratory Rate 23 16 25 H Blood Pressure Pulse Oximetry 96 100 99 12/03/21 15:00 12/03/21 15:24 12/03/21 15:30 Pulse Rate 82 89 94 H Respiratory Rate 20 21 28 H Blood Pressure 143/79 H Pulse Oximetry 91 94 97 12/03/21 16:00 Pulse Rate 79 Respiratory Rate 20 Blood Pressure Pulse Oximetry 93 MDM - Psych Lab Data Result diagrams: 12/03/21 10:05 12/03/21 10:05 Labs: Lab Results 12/03/21 12/03/21 12/03/21 Range/Units 10:05 10:05 10:05 WBC 11.0 (4.5-11.0) X10^3/uL RBC 4.49 (4.0-5.2) X10^6/uL Hgb 12.7 (12.0-16.0) g/dL Hct 37.2 (36-46) % MCV 82.9 (80-100) fL MCH 28.4 (26-34) PG MCHC 34.2 (30-36) % RDW 13.7 (11.6-14.8) % Plt Count 242 (150-400) X10^3/uL Neut % (Auto) 70.2 (50-75) % Lymph % (Auto) 22.9 L (25-40) % Payette % (Auto) 4.7 (3-14) % Eos % (Auto) 1.9 L (2-4) % Baso % (Auto) 0.3 (0-2) % Neut # (Auto) 7700 H (1788-7756) /uL Lymph # (Auto) 2500 (7859-5610) /uL Payette # (Auto) 500 (0-900) /uL Eos # (Auto) 200 (0-450) /uL Baso # (Auto) 0 (0-100) /uL Sodium 138 (137-145) mmol/L Potassium 4.2 (3.4-5.1) mmol/L Chloride 103 (98-107) mmol/L Carbon Dioxide 25 (22-32) mmol/L BUN 10 (7-17) mg/dL Creatinine 0.79 (0.52-1.04) mg/dL Estimated GFR > 60.0 (>60) mL/min BUN/Creatinine Ratio 12.7 (6-22) Glucose 99 (70-100) mg/dL Calcium 9.0 (8.4-10.2) mg/dL Magnesium (1.6-2.3) mg/dL Total Bilirubin 0.4 (0.2-1.3) mg/dL AST 19 (14-36) IU/L ALT 13 (<35) IU/L Alkaline Phosphatase 85 (38-126) U/L Total Creatine Kinase (30-135) U/L Total Protein 7.3 (6.3-8.2) g/dL Albumin 4.1 (3.5-5.0) g/dL Globulin 3.2 (1.7-4.1) g/dL Albumin/Globulin Ratio 1.3 (1.0-2.8) TSH 4.37 (0.47-4.68) uIU/mL Free T4 0.78 (0.78-2.19) ng/dL Urine Color Urine Appearance Urine pH (4.5-8.0) Ur Specific Hardy (1.000-1.035) Urine Protein (Negative) Urine Glucose (UA) (Negative) g/dL Urine Ketones (NEGATIVE) Urine Occult Blood (Negative) Urine Nitrate (Negative) Urine Bilirubin (NEGATIVE) Urine Urobilinogen (0.2) E.U./dL Ur Leukocyte Esterase (NEGATIVE) Urine RBC (0-5/HPF) Urine WBC (0-5/HPF) Ur Squamous Epith Cells (0-5/HPF) Amorphous Sediment Urine Bacteria (None) Ur Culture Indicated? Urine Test (Negative) Salicylates < 1.0 (<20) mg/dL U Opiates 300ng/mL cut (Negative) Ur Oxycodone Screen (Negative) Urine Methadone Screen (Negative) Acetaminophen < 10 (10-30) ug/mL Ur Barbiturates Screen (Negative) U Tricyclic Antidepress (Negative) Ur Phencyclidine Scrn (Negative) Ur Amphetamines Screen (Negative) U Methamphetamines Scrn (Negative) Ur MDMA Scrn (Ecstasy) (Negative) U Benzodiazepines Scrn (Negative) Urine Cocaine Screen (Negative) U Marijuana (THC) Screen (Negative) Ethyl Alcohol < 10 ( - 10) mg/dL SARS-CoV-2 (PCR) (Negative) 12/03/21 12/03/21 12/03/21 Range/Units 10:05 10:05 10:15 WBC (4.5-11.0) X10^3/uL RBC (4.0-5.2) X10^6/uL Hgb (12.0-16.0) g/dL Hct (36-46) % MCV (80-100) fL MCH (26-34) PG MCHC (30-36) % RDW (11.6-14.8) % Plt Count (150-400) X10^3/uL Neut % (Auto) (50-75) % Lymph % (Auto) (25-40) % Payette % (Auto) (3-14) % Eos % (Auto) (2-4) % Baso % (Auto) (0-2) % Neut # (Auto) (8690-9556) /uL Lymph # (Auto) (3794-7449) /uL Payette # (Auto) (0-900) /uL Eos # (Auto) (0-450) /uL Baso # (Auto) (0-100) /uL Sodium (137-145) mmol/L Potassium (3.4-5.1) mmol/L Chloride (98-107) mmol/L Carbon Dioxide (22-32) mmol/L BUN (7-17) mg/dL Creatinine (0.52-1.04) mg/dL Estimated GFR (>60) mL/min BUN/Creatinine Ratio (6-22) Glucose (70-100) mg/dL Calcium (8.4-10.2) mg/dL Magnesium 2.1 (1.6-2.3) mg/dL Total Bilirubin (0.2-1.3) mg/dL AST (14-36) IU/L ALT (<35) IU/L Alkaline Phosphatase (38-126) U/L Total Creatine Kinase 83 (30-135) U/L Total Protein (6.3-8.2) g/dL Albumin (3.5-5.0) g/dL Globulin (1.7-4.1) g/dL Albumin/Globulin Ratio (1.0-2.8) TSH (0.47-4.68) uIU/mL Free T4 (0.78-2.19) ng/dL Urine Color Urine Appearance Urine pH (4.5-8.0) Ur Specific Hardy (1.000-1.035) Urine Protein (Negative) Urine Glucose (UA) (Negative) g/dL Urine Ketones (NEGATIVE) Urine Occult Blood (Negative) Urine Nitrate (Negative) Urine Bilirubin (NEGATIVE) Urine Urobilinogen (0.2) E.U./dL Ur Leukocyte Esterase (NEGATIVE) Urine RBC (0-5/HPF) Urine WBC (0-5/HPF) Ur Squamous Epith Cells (0-5/HPF) Amorphous Sediment Urine Bacteria (None) Ur Culture Indicated? Urine Test (Negative) Salicylates (<20) mg/dL U Opiates 300ng/mL cut Negative (Negative) Ur Oxycodone Screen Negative (Negative) Urine Methadone Screen Negative (Negative) Acetaminophen (10-30) ug/mL Ur Barbiturates Screen Negative (Negative) U Tricyclic Antidepress Negative (Negative) Ur Phencyclidine Scrn Negative (Negative) Ur Amphetamines Screen Negative (Negative) U Methamphetamines Scrn Negative (Negative) Ur MDMA Scrn (Ecstasy) Negative (Negative) U Benzodiazepines Scrn Negative (Negative) Urine Cocaine Screen Negative (Negative) U Marijuana (THC) Screen Negative (Negative) Ethyl Alcohol ( - 10) mg/dL SARS-CoV-2 (PCR) Negative (Negative) 12/03/21 12/03/21 Range/Units 10:53 10:53 WBC (4.5-11.0) X10^3/uL RBC (4.0-5.2) X10^6/uL Hgb (12.0-16.0) g/dL Hct (36-46) % MCV (80-100) fL MCH (26-34) PG MCHC (30-36) % RDW (11.6-14.8) % Plt Count (150-400) X10^3/uL Neut % (Auto) (50-75) % Lymph % (Auto) (25-40) % Payette % (Auto) (3-14) % Eos % (Auto) (2-4) % Baso % (Auto) (0-2) % Neut # (Auto) (8378-9096) /uL Lymph # (Auto) (0110-6489) /uL Payette # (Auto) (0-900) /uL Eos # (Auto) (0-450) /uL Baso # (Auto) (0-100) /uL Sodium (137-145) mmol/L Potassium (3.4-5.1) mmol/L Chloride (98-107) mmol/L Carbon Dioxide (22-32) mmol/L BUN (7-17) mg/dL Creatinine (0.52-1.04) mg/dL Estimated GFR (>60) mL/min BUN/Creatinine Ratio (6-22) Glucose (70-100) mg/dL Calcium (8.4-10.2) mg/dL Magnesium (1.6-2.3) mg/dL Total Bilirubin (0.2-1.3) mg/dL AST (14-36) IU/L ALT (<35) IU/L Alkaline Phosphatase (38-126) U/L Total Creatine Kinase (30-135) U/L Total Protein (6.3-8.2) g/dL Albumin (3.5-5.0) g/dL Globulin (1.7-4.1) g/dL Albumin/Globulin Ratio (1.0-2.8) TSH (0.47-4.68) uIU/mL Free T4 (0.78-2.19) ng/dL Urine Color Yellow Urine Appearance Clear Urine pH 6.0 (4.5-8.0) Ur Specific Hardy <=1.005 (1.000-1.035) Urine Protein Negative (Negative) Urine Glucose (UA) Negative (Negative) g/dL Urine Ketones Negative (NEGATIVE) Urine Occult Blood 1+ H (Negative) Urine Nitrate Negative (Negative) Urine Bilirubin Negative (NEGATIVE) Urine Urobilinogen 0.2 (0.2) E.U./dL Ur Leukocyte Esterase Negative (NEGATIVE) Urine RBC 0-1/hpf (0-5/HPF) Urine WBC None seen (0-5/HPF) Ur Squamous Epith Cells 5-10 /hpf H (0-5/HPF) Amorphous Sediment 1+ Urine Bacteria Occasional (0-1) (None) Ur Culture Indicated? Cult not indicated Urine Test Negative (Negative) Salicylates (<20) mg/dL U Opiates 300ng/mL cut (Negative) Ur Oxycodone Screen (Negative) Urine Methadone Screen (Negative) Acetaminophen (10-30) ug/mL Ur Barbiturates Screen (Negative) U Tricyclic Antidepress (Negative) Ur Phencyclidine Scrn (Negative) Ur Amphetamines Screen (Negative) U Methamphetamines Scrn (Negative) Ur MDMA Scrn (Ecstasy) (Negative) U Benzodiazepines Scrn (Negative) Urine Cocaine Screen (Negative) U Marijuana (THC) Screen (Negative) Ethyl Alcohol ( - 10) mg/dL SARS-CoV-2 (PCR) (Negative) ECG Data Attestation: I personally reviewed and interpreted this ECG as follows: (Normal sinus rhythm rate 90 beats per minute. QT 394, QTC 481. No ectopy. No acute ST T wave changes.) Discharge Plan Departure Patient Disposition: Home Clinical Impression: Overdose, Suicide attempt Instructions: DI for Suicidal Ideation-Adult Activity Restrictions/Additional Instructions: Use medications prescription only. Follow-up with your doctor. Seek counseling/mental health care as directed by the DCR who interviewed you. Return here as necessary. Prescriptions: No Action benzonatate 100 mg capsule 100 mg PO BID-TID PRN (Reason: cough) Qty: 20 0RF prednisone 10 mg tablet See Rx Instructions .ROUTE .COMPLEX Qty: 30 0RF Rx Instructions: Day 1,2,3: 40mg PO Daily Day 4,5,6: 30mg PO Daily Day 7,8,9: 20mg PO Daily Day 10,11,12: 10mg PO Daily #30 epinephrine [EpiPen 2-Devin] 0.3 mg/0.3 mL auto-injector 0.3 mg IM Q5-15M PRN (Reason: anaphylaxis) Qty: 2 0RF Rx Instructions: do not exceed 3 doses per episode Referrals: Laura Luna FNP-C [Primary Care Provider] -
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
--- NOTE | 2021-12-03 15:53 | CM.SWNOTE ---
Attempted Following Inpatient Psych Beds [facility] reviewing P [phone] F [phone] [facility] Requires PILER to complete pre auth before admission, cannot accommodate that today [place] Opening on Sunday P [phone] F [phone] [place] Full P [phone] [place] Full P [phone] op 2 [facility] [place] Full P [phone] [facility] [place] Full P [phone] 3.26.22 1600: According to RN, patient beginning to refuse Voluntary placement, patient should be considered an acute threat to self and gravely disabled, recommend DCR dispatch JW
--- NOTE | 2021-12-03 16:32 | PC.NURSE ---
Pt initially spoke to UMBRELLA TIPPER and was agreeable to Voluntary Admission at that time. Pt called RN in room, mother no longer at bedside, and pt states she does not want to go to inpatient care, I only agreed because my mom was in the room, she is pushy. Pt further states she wants to be discharged and go home, pt states My will be there to watch me for the next 24 hours. Spoke to UMBRELLA TIPPERCristhian Correa and per her report pt unable to make a safety contract. Dr. Orozco notified of situation.
[2021-12-03 16:41] LABS: Creatine Kinase 83 U/L (30-135); Magnesium 2.1 mg/dL (1.6-2.3)
--- NOTE | 2021-12-03 17:17 | PC.NURSE ---
DCR notified of involuntary patient.
--- NOTE | 2021-12-03 19:35 | PC.NURSE ---
Pt evaluated by DCR and determined safe for discharge home, pt contracted for safety with DCR.
== END 2021-12-03 19:44 | disposition home or self-care (01) ==
PROVIDERS: Emergency Provider Emergency Medicine; PCP Nurse Practitioner Family
DX: T42.4X2A Poisoning by benzodiazepines, intentional self-harm, initial encounter (principal); T39.312A Poisoning by propionic acid derivatives, intentional self-harm, initial encounter; R53.83 Other fatigue; Z20.822 Contact with and (suspected) exposure to COVID-19
CPT/HCPCS: 36415; 80053; 80305; 80320; 80329; 81001; 81025; 82550; 83735; 84439; 84443; 85025; 87635; 93005; 99284; C9803; G0480

== ENCOUNTER → 2022-07-23 09:47 | Outpatient (CLI) | payer OTHER, SELFPAY ==
[2022-07-23 10:39] LABS: Influenza A - CEPHEID Flu A POSITIVE (NEGATIVE); Influenza B - CEPHEID Flu B NEGATIVE (NEGATIVE); Respiratory Syncytial Virus Negative (Negative)
[2022-07-23 10:41] LABS: COVID-19 CEPHEID 4-PLEX PCR Negative (Negative)
== END ==
PROVIDERS: PCP Nurse Practitioner Family; Visit Provider Physician Assistant
DX: R05.9 Cough, unspecified (principal)
CPT/HCPCS: 0241U